=== PATIENT | female | born 1975 | race Caucasian/White ===

== ENCOUNTER 2021-12-26 14:04 | Outpatient (REF) | payer MEDICAID, SELFPAY ==
[2021-12-26 15:12] LABS: Rheumatoid Factor < 15.0 IU/mL (<15.0)
[2021-12-26 15:37] LABS: Erythrocyte Sedimentation Rate 7 MM/HR (0-20)
[2021-12-28 05:01] LABS: Lyme Abs Screen <0.90 index
[2021-12-28 13:47] LABS: Anti Nuclear Antibody Screen NEGATIVE (NEGATIVE)
== END 2021-12-26 14:05 | disposition home or self-care (01) ==
LOC: HO.LAB 14:04
PROVIDERS: Visit Provider Psychiatry & Neurology Neurology
DX: M79.604 Pain in right leg (principal)
CPT/HCPCS: 36415; 85652; 86038; 86039; 86431; 86617; 86618

== ENCOUNTER 2022-03-08 08:39 | Outpatient (REF) | payer MEDICAID, SELFPAY ==
--- NOTE | ~2022-03-08 | XR_ITS ---
EXAMINATION: XR CHEST CLINICAL INFORMATION: Shortness of breath. COMPARISON: None TECHNIQUE: 2 views of the chest were obtained. FINDINGS: No significant abnormality is noted involving the heart, lungs, mediastinum, bony thorax or soft tissues. XR/XR chest 2V IMPRESSION: Unremarkable chest exam.
== END 2022-03-08 08:40 | disposition home or self-care (01) ==
LOC: HO.XRAY 08:39
PROVIDERS: PCP Pediatrics; Visit Provider Emergency Medicine
DX: R06.02 Shortness of breath (principal)
CPT/HCPCS: 71046

== ENCOUNTER 2022-03-08 18:47 | Outpatient (REF) | payer MEDICAID, SELFPAY ==
--- NOTE | ~2022-03-08 | MR_ITS ---
EXAMINATION: MR LUMBAR SPINE WITHOUT CONTRAST CLINICAL INFORMATION: Low back pain radiating posteriorly on the left side. COMPARISON: MRI dated 01/29/2018. TECHNIQUE: MRI of the lumbar spine was obtained using routine sequences without contrast. FINDINGS: VERTEBRAL BODIES AND PARASPINAL STRUCTURES: The marrow signal is within normal limits. The L5 vertebra is transitional and partially sacralized. There are no compression fractures or subluxations. Mild disc space narrowing has slightly further developed at the L4-L5 level with mild right lateralized endplate edema. The paraspinal soft tissues appear normal. CONUS MEDULLARIS AND CAUDA EQUINA: Normal, terminating at the level of L1. No lower cord signal abnormality is seen. The cauda equina nerve roots are normal. SPINAL LEVELS: L1-L2: No disc pathology or central canal stenosis. Patent foramina. L2-L3: Mild disc bulge and shallow right subarticular zone disc protrusion with an underlying annular fissure. Mild facet arthropathy. No central canal stenosis or foraminal narrowing. L3-L4: Mild, broad-based posterior disc bulge and underlying annular fissure mildly impressing upon the ventral thecal sac with knwm-zb-[id number] facet arthropathy. Stable slight narrowing of the central canal. Patent foramina. L4-L5: Broad-based usjtxod-lp-vxlob subarticular zone disc protrusion mildly distorts the ventral thecal sac and slightly impresses upon the traversing right L5 nerve root. The disc protrusion is slightly increased in size. Hypertrophic facet arthropathy without central canal stenosis. Mild right foraminal narrowing. L5-S1: Efhe-nz-gkmvvblw facet arthropathy and mild disc bulge without central canal stenosis or foraminal encroachment. MR/MR lumbar spine wo con IMPRESSION: 1. Slight increase in size of a broad-based central to right subarticular zone disc protrusion at the L4-L5 level distorting the ventral thecal sac and impressing upon the right L5 nerve root. 2. Stable mild spondylitic changes elsewhere in the lumbar spine as compared to prior imaging. No central canal stenosis.
== END 2022-03-08 18:48 | disposition home or self-care (01) ==
LOC: HO.MRI 18:47
PROVIDERS: Visit Provider Physician Assistant
DX: M54.16 Radiculopathy, lumbar region (principal)
CPT/HCPCS: 72148

== ENCOUNTER 2022-03-09 10:23 | Outpatient (REF) | payer MEDICAID, SELFPAY ==
--- NOTE | ~2022-03-09 | US_ITS ---
EXAMINATION: US PELVIS CLINICAL INFORMATION: Abnormal uterine bleeding COMPARISON: 06/25/2014 TECHNIQUE: Ultrasound of the pelvis is performed using both transabdominal and transvaginal transducers along with Doppler. Transvaginal imaging is performed due to inadequate visualization transabdominally. FINDINGS: Uterus: The uterus is anteverted and measures 10.5 x 4.6 x 5.5 cm. The double wall endometrial thickness is 0.4 mm. The uterus is smooth in contour and has normal myometrial echogenicity. Posterior uterine body fibroid measures 2.3 x 2.4 x 2.7 cm. This is relatively isoechoic to the liver parenchyma. Adnexa: Both ovaries are visualized. There is normal color flow to the adnexa. There is no ovarian torsion. There is no pelvic ascites or fluid collection. Right ovary measures 2.4 x 0.9 x 2.2 cm. No adnexal mass. Left ovary measures 3.7 x 2.6 x 2.5 cm. Dominant follicles are present. The largest has internal echoes measuring up to 2 cm, possibly a hemorrhagic cyst. US/US pelvic and transvaginal IMPRESSION: Uterine fibroid measuring 2.7 cm noted. This shows increase in size from 2013. Probable small left ovarian hemorrhagic cyst.
== END 2022-03-09 10:24 | disposition home or self-care (01) ==
LOC: HO.HMGCX 10:23
PROVIDERS: PCP Pediatrics; Visit Provider Pediatrics
DX: N93.9 Abnormal uterine and vaginal bleeding, unspecified (principal); N93.8 Other specified abnormal uterine and vaginal bleeding
CPT/HCPCS: 76830; 76856

== ENCOUNTER → 2022-04-03 11:41 | Outpatient (BNVA) | payer MEDICAID, SELFPAY | PROVIDERS: PCP Pediatrics | DX: N39.41 Urge incontinence (principal) | CPT/HCPCS: 99202 ==

== ENCOUNTER 2022-05-18 12:05 | Outpatient (REF) | payer MEDICAID, SELFPAY ==
[2022-05-18 13:20] LABS: Hematocrit 36.5 % (37.0-47.0); Hemoglobin 12.2 g/dl (12.0-16.0); Mean Corpuscular HGB Conc 33.4 g/dl (31.0-35.0); Mean Corpuscular Hemoglobin 29.7 pg (27.0-33.0); Mean Corpuscular Volume 88.8 fL (80.0-98.0); Mean Platelet Volume 9.8 fL (9.4-12.3); Platelet Count 263 X10*3/uL (160-400); Red Blood Count 4.11 X10*6/uL (4.20-5.50); Red Cell Distribution Width 14.3 % (11.0-16.0); White Blood Count 5.4 X10*3/uL (4.8-10.8)
[2022-05-18 14:47] LABS: HCG Quantitative < 2 mIU/mL; TSH reflex Free T4 0.51 uIU/mL (0.32-4.0)
[2022-05-19 04:32] LABS: CT PCR NOT DETECTED (Not Detect.); NG PCR NOT DETECTED (Not Detect.)
[2022-05-20 03:47] LABS: Follicle Stimulating Hormone 23.4 mIU/mL; Lutenizing Hormone 10.5 mIU/mL
[2022-05-24 18:21] LABS: HPV mRNA E6/E7 rflx Not Detected (Not Detected)
== END 2022-05-18 12:06 | disposition home or self-care (01) ==
LOC: HO.LAB 12:05
PROVIDERS: PCP Pediatrics; Visit Provider Obstetrics & Gynecology
DX: N93.9 Abnormal uterine and vaginal bleeding, unspecified (principal); D21.9 Benign neoplasm of connective and other soft tissue, unspecified; N83.209 Unspecified ovarian cyst, unspecified side
CPT/HCPCS: 36415; 83001; 83002; 84443; 84702; 85027; 87491; 87591; 87624; 88142; 99202

== ENCOUNTER 2022-06-11 14:58 | Outpatient (REF) | payer MEDICAID, SELFPAY | END 2022-06-11 14:59 | disposition home or self-care (01) | LOC: HO.LAB 14:58 | PROVIDERS: PCP Pediatrics; Visit Provider Obstetrics & Gynecology | DX: Z32.02 Encounter for pregnancy test, result negative (principal); N93.9 Abnormal uterine and vaginal bleeding, unspecified | CPT/HCPCS: 58100; 81025; 88305 ==

== ENCOUNTER 2022-07-04 10:19 | Outpatient (REF) | payer MEDICAID, SELFPAY ==
--- NOTE | ~2022-07-04 | US_ITS ---
EXAMINATION: US PELVIS CLINICAL INFORMATION: Abnormal uterine and vaginal bleeding. COMPARISON: None TECHNIQUE: Ultrasound of the pelvis is performed using both transabdominal and transvaginal transducers along with Doppler. Transvaginal imaging is performed due to inadequate visualization transabdominally. FINDINGS: UTERUS: The uterus is anteverted and anteflexed and measures 10.0 x 5.04 x 5.90 cm. The double wall endometrial thickness is 0.41 cm. The uterus is smooth in contour with very heterogeneous echotexture. There is a hypoechoic lesion in the anterior body of the uterus measuring 3.91 x 3.48 x 3.64 cm. Previously measured 2.3 x 2.4 x 2.7 cm. ADNEXA: Both ovaries are visualized. There is normal color flow to the adnexa. There is no ovarian torsion. There is no pelvic ascites or fluid collection. Right ovary measures 2.60 x 0.97 x 1.71 cm and volume 2.26 mL. Previously right ovary measured 2.4 x 0.90 x 2.2 cm. Left ovary measures 5.78 x 3.82 x 4.47 cm and volume 51.68 mL. There is a complex cyst measuring 4.3 x 3.7 x 4.7 cm. Previously it measured 2.0 x 2.0 x 1.8 cm. Previously the left ovary measured 3.7 x 2.6 x 2.5 cm. There is no free fluid in cul-de-sac. US/US pelvic and transvaginal IMPRESSION: Complex cyst left ovary. The right ovary is unremarkable. Very heterogeneous uterus with solitary fibroid.
== END 2022-07-04 10:20 | disposition home or self-care (01) ==
LOC: HO.MAMMO 10:19
PROVIDERS: Visit Provider Obstetrics & Gynecology
DX: N93.9 Abnormal uterine and vaginal bleeding, unspecified (principal)
CPT/HCPCS: 76830; 76856

== ENCOUNTER 2022-07-21 12:25 | Emergency (ER) | payer MEDICAID, SELFPAY ==
[2022-07-21 12:46] VITALS: BP 128/85; PULSE 88; RESP 15; TEMP 37.1; O2SAT 98; BMI 29.5
[2022-07-21 13:10] LABS: IDNOW Serial# 9DB6401D; Influenza A Negative (Negative)
[2022-07-21 13:11] LABS: Influenza B2 Negative (Negative)
[2022-07-21 13:12] LABS: COVID-19 Test Negative (Negative)
--- NOTE | 2022-07-21 15:45 | ED_ITS ---
HPI - URI/Sore Throat General Chief Complaint: Upper Respiratory Symptoms Stated Complaint: flu like symptoms Time Seen by Provider: 07/21/22 15:45 Source: patient Mode of arrival: ambulatory Limitations: no limitations History of Present Illness HPI Narrative: 46-year-old female who is healthy presents with 2 days of nasal congestion, sneezing, sore throat, body aches. Daughter is sick at home with similar symp toms. No difficulty breathing, chest pain, vomiting, diarrhea, abdominal pain. Related Data Home Medications Medication Instructions Recorded Confirmed cholecalciferol (vitamin D3) 50 50 mcg PO DAILY 05/18/22 mcg (2,000 unit) capsule (Vitamin D3) dextroamphetamine-amphetamine 10 10 mg PO DAILY 05/18/22 mg tablet (Adderall) loratadine 10 mg tablet 10 mg PO DAILY 05/18/22 meloxicam 7.5 mg tablet 7.5 mg PO BID PRN 05/18/22 prenat.vits,florencia,bme-sitt-hvohj 1 tab PO DAILY 05/18/22 dextroamphetamine-amphetamine ER 1 cap PO QAM 06/04/22 10 mg 24hr capsule,extend release (Adderall XR) vits no.130-ferrous fum 1 tab PO DAILY 06/04/22 27 mg iron-folic acid 800 mcg tablet ( Vitamin) Allergies Allergy/AdvReac Type Severity Reaction Status Date / Time No Known Allergies Allergy Verified 06/04/22 15:09 mold, pollen Allergy Unknown Unknown Uncoded 06/04/22 15:09 Review of Systems Review of Systems: Yes all other systems are reviewed and are negative Constitutional: Constitutional: Reports no additional constitutional complaints, Reports body ache(s), Denies chills, Denies fever(s), Denies headache(s) and Denies weakness Eyes: Eyes: Reports no additional eye complaints and Denies change in vision ENT: Reports system reviewed and no additional complaints, except as documented, Denies dizziness, Denies headache(s), Reports nasal congestion, Denies nasal discharge, Denies neck pain and Reports sore throat Cardiovascular: Cardiovascular: Reports no additional cardiovascular complaints, Denies chest pain, Denies leg edema and Denies dyspnea Respiratory: Respiratory: Reports no additional respiratory complaints, Denies cough and Denies dyspnea Gastrointestinal: Gastrointestinal: Reports no additional gastrointestinal complaints, Denies abdominal pain, Denies diarrhea, Denies nausea and Denies vomiting Genitourinary: Genitourinary: Reports no additional female genitourinary complaints and Denies urinary incontinence Musculoskeletal: Musculoskeletal: Reports no additional musculoskeletal complaints, Denies back pain, Denies arthralgias, Denies joint swelling, Denies neck pain, Denies numbness and Denies tingling Integumentary/Breasts: Skin/Breast: Reports system reviewed and no additional complaints, except as docu and Denies rash Neurologic: Reports system reviewed and no additional complaints, except as documented, Denies Abnormal speech present, Denies dizziness, Denies headache(s), Denies numbness, Denies tingling and Denies weakness PMFSH Past Medical History Attestation statement: The following information was validated with the patient. Source: old records reviewed and nursing notes reviewed Medical History Arthritis of left knee Degenerative tear of meniscus of left knee Osteoarthritis of patellofemoral joints, bilateral Other chronic pain Urge incontinence Surgical History History of surgery Social History Social History Advance Directives: No Advance Directives Information Provided: No Physical Exam Vital Signs: Vital Signs: Last Vital Signs Temp 98.8 F 07/21/22 12:46 Pulse 88 07/21/22 12:46 Resp 15 07/21/22 12:46 BP 128/85 07/21/22 12:46 Pulse Ox 98 07/21/22 12:46 O2 Del Method 07/21/22 12:46 BMI result Body Mass Index 29.5 Const: General: cooperative, healthy appearing, comfortable and no acute distress Orientation/consciousness: patient oriented x3 Limitations: no limitations HEENT: Head: Yes normal to inspection Ears: hearing grossly normal bilaterally and TM's normal bilaterally General nose exam: Normal external nose present Face and sinus: Yes normal facial exam Mouth: Normal oral and palatal mucosa present Throat: Yes posterior oropharynx normal, Yes tonsils normal and Yes uvula midline Eyes: General: appearance normal, both eyes and all related structures Pupils: Equal, round and reactive pupils present Neck: Neck: Yes normal visual inspection, Yes full ROM and Yes no lymphadenopathy Chest: Chest palpation & inspection: normal inspection of the chest Resp: Effort & Inspection: normal respiratory effort Auscultation: clear to auscultation bilaterally Cardio: Rate: regular rate Rhythm: regular rhythm Peripheral pulses: Peripheral pulses 2+ throughout GI: Inspection: Yes normal to inspection Palpation (GI): Soft to palpation and nontender Auscultation: normal bowel sounds Back/Spine/Pelvis: Thoracic/Lumbar Spine: thoracic and lumbar spine normal to inspection Skin: General skin exam: no rashes or lesions noted Neuro: General: patient oriented x3, no focal motor deficits and normal sensation to monofilament Cranial nerves: Yes Equal, round and reactive pupils present Cognition (Neuro): normal cognition Speech: No Abnormal speech present Gait exam (Neuro): Normal gait present Motor exam (neuro): 5/5 motor strength present throughout Extrem: General: Yes normal to inspection Course Course Course Narrative: Testing for flu, COVID and RSV are negative. Likely viral syndrome. Will discharge home with supportive care. Reviewed worrisome signs and symptoms of when to return to the emergency room. Comfortable discharge home. MDM - URI/Sore Throat MDM Narrative Medical decision making narrative: 46-year-old female here with several days of URI symptoms. Patient has had sick contact. Will send testing for flu, COVID and RSV Vitals are stable Exam is benign Medical Records Attestation: I reviewed the patient's medical records. Lab Data Attestation: I reviewed the patient's lab results. Labs: Lab Results 07/21/22 07/21/22 Range/Units 12:50 12:50 COVID-19 (LIZZETTE) Negative (Negative) COVID-19 Clin Com See Note Influenza Type A (LIEN) Negative (Negative) Influenza Type B (LIEN) Negative (Negative) Influenza A & B Note See Note Discharge Plan Discharge Clinical Impression: Viral infection Patient Disposition: Home, Self-Care Instructions: Viral Syndrome (ED) Additional Instructions: Testing for flu, COVID, RSV were all negative Alternate Motrin and Tylenol for pain or fever Increase fluids, rest Prescriptions: No Action dextroamphetamine-amphetamine [Adderall XR] 10 mg capsule,extended release 24hr 1 cap PO QAM Vitamin 27 mg iron- 800 mcg tablet 1 tab PO DAILY dextroamphetamine-amphetamine [Adderall] 10 mg tablet 10 mg PO DAILY prenat.vits,florencia,ngh-rndd-qlssu Tablet 1 tab PO DAILY cholecalciferol (vitamin D3) [Vitamin D3] 50 mcg (2,000 unit) capsule 50 mcg PO DAILY meloxicam 7.5 mg tablet 7.5 mg PO BID PRN loratadine 10 mg tablet 10 mg PO DAILY Referrals: Kiarra Kate MD [Primary Care Provider] - Stand Alone Forms: Work/School Release Interventions: ED Discharge Assessment Last Done: 07/21/22 15:54 Discharge Date/Time: 07/21/22 15:55
== END 2022-07-21 15:55 | disposition home or self-care (01) ==
PROVIDERS: Emergency Provider Emergency Medicine; PCP Pediatrics
DX: B34.9 Viral infection, unspecified (principal); Z20.822 Contact with and (suspected) exposure to COVID-19; J02.9 Acute pharyngitis, unspecified
CPT/HCPCS: 87502; 87635; 99283

== ENCOUNTER → 2022-08-15 13:02 | Outpatient (BNVA) | payer MEDICAID, SELFPAY | PROVIDERS: PCP Pediatrics; Visit Provider Urology | DX: N39.3 Stress incontinence (female) (male) (principal); N81.89 Other female genital prolapse; N32.81 Overactive bladder; N81.10 Cystocele, unspecified; K59.00 Constipation, unspecified | CPT/HCPCS: 51798; 99212 ==

== ENCOUNTER 2022-09-18 15:00 | Outpatient (RCR) | payer MEDICAID, SELFPAY ==
--- NOTE | 2022-05-21 12:00 | MHC.PT.EP ---
[facility] [place] Office [place] Office [place] Office [address] Roberto Weber [address] [phone] F: [phone] F: [phone] F: [phone] F: [phone] Physical Therapy Plan of Care Date of Evaluation: Date of Surgery: N/A Diagnosis: urge incontinence (RC) Assessment: pt is a 46 yo female presenting to physical therapy w/ urge incontinence. pt presents to physical therapy with pain, decreased range of motion, decreased strength, impaired functional mobility, impaired postural awareness, and gait deviations. pt is a good candidate for skilled PT due to age, potential remediation of impairments, typical disease/condition progression and prognosis, comorbidities, and motivation. pt would benefit from tailored strengthening and stretching exercise program, functional training, gait training, postural re-training, neuromuscular re-education, modalities as needed for pain, equipment safety demonstration. Frequency and Duration: The patient will be seen 1x/wk for 8 wks Short Term Goals: pt will be I w/ HEP to promote self-management of condition. pt will improve B hip abduction strength to improve gait pattern on even ground. Chcf Goals: pt will report a reduction of incontinence episodes to 0x/per month to promote continence w/ IAP. pt will demo proper lifting mechanics x5 reps w/ no verbal cueing of 15# from floor to waist height to promote neutral spine w/ carrying groceries. Treatment Plan: Modalities to reduce pain, spasms and effusion. Manual therapy to restore motion and function. Therapeutic exercise to improve strength and flexibility. Neuromuscular re-education for posture and balance. Therapeutic activities to return to functional activities of daily living. Electronically signed by: Please sign and return to therapist. Thank you for your referral.
== END 2022-10-23 10:29 | disposition home or self-care (01) ==
LOC: HO.PT 15:00
PROVIDERS: PCP Pediatrics
DX: N39.41 Urge incontinence (principal)
CPT/HCPCS: 97110; 97112; 97140; 97162

== ENCOUNTER → 2022-12-17 10:21 | Outpatient (BNVA) | payer MEDICAID, SELFPAY | PROVIDERS: PCP Pediatrics; Visit Provider Nurse Practitioner Family | DX: Z13.89 Encounter for screening for other disorder (principal) ==

== ENCOUNTER 2023-06-04 11:06 | Outpatient (REF) | payer MEDICAID, SELFPAY ==
[2023-06-05 14:53] LABS: BV Int Neg Control Negative (Negative); BV Int Pos Control Positive (Positive)
== END 2023-06-04 11:07 | disposition home or self-care (01) ==
LOC: HO.CHCLDS 11:06
PROVIDERS: Visit Provider Pediatrics
DX: N76.0 Acute vaginitis (principal)
CPT/HCPCS: 87480; 87510; 87660

== ENCOUNTER 2023-12-03 11:36 | Outpatient (REF) | payer MEDICAID, SELFPAY ==
[2023-12-03 15:45] LABS: TSH reflex Free T4 0.42 uIU/mL (0.32-4.0)
== END 2023-12-03 11:37 | disposition home or self-care (01) ==
LOC: HO.CHCLDS 11:36
PROVIDERS: Visit Provider Advanced Practice Midwife
DX: N95.9 Unspecified menopausal and perimenopausal disorder (principal)
CPT/HCPCS: 36415; 84443

== ENCOUNTER 2024-01-03 11:10 | Outpatient (REF) | payer MEDICAID, SELFPAY ==
[2024-01-03 14:30] LABS: MANUAL DIFF FLAG NO
[2024-01-03 14:35] LABS: Basophils Percent Auto 0.4 % (0-2); Eosinophils Absolute Auto 0.2 X10*3/uL (0.0-0.4); Eosinophils Percent Auto 3.1 % (0-4); Hematocrit 37.5 % (37.0-47.0); Hemoglobin 12.6 g/dl (12.0-16.0); Imm Gran Abs Auto 0.02 X10*3/uL (0.00-0.03); Imm Gran Pct Auto 0.4 % (0.0-0.4); Lymphocytes Absolute Auto 2.4 X10*3/uL (1.2-4.9); Lymphocytes Percent Auto 42.9 % (20-40); Mean Corpuscular HGB Conc 33.6 g/dl (31.0-35.0); Mean Corpuscular Hemoglobin 28.8 pg (27.0-33.0); Mean Corpuscular Volume 85.8 fL (80.0-98.0); Mean Platelet Volume 9.7 fL (9.4-12.3); Monocytes Absolute Auto 0.3 X10*3/uL (0.1-1.2); Monocytes Percent Auto 6.2 % (2-11); Neutrophils Absolute Auto 2.6 x10*3/uL (2.0-8.3); Platelet Count 267 X10*3/uL (160-400); Red Blood Count 4.37 X10*6/uL (4.20-5.50); Red Cell Distribution Width 13.5 % (11.0-16.0); White Blood Count 5.5 X10*3/uL (4.8-10.8)
[2024-01-03 14:48] LABS: Alanine Aminotransferase 44 U/L (0-31); Albumin Level 4.2 g/dL (3.5-5.0); Alkaline Phosphatase 76 U/L (39-117); Aspartate Amino Transferase 28 U/L (5-31); Bilirubin Direct 0.2 mg/dL (0.0-0.5); Bilirubin Total 0.8 mg/dL (0.0-1.0); Rheumatoid Factor < 13.0 IU/mL (<15.0); Total Protein 7.1 g/dL (6.5-8.0)
[2024-01-03 15:29] LABS: Erythrocyte Sedimentation Rate 14 MM/HR (0-20)
== END 2024-01-03 11:11 | disposition home or self-care (01) ==
LOC: HO.CHCLDS 11:10
PROVIDERS: Visit Provider Pediatrics
DX: M17.0 Bilateral primary osteoarthritis of knee (principal); N95.9 Unspecified menopausal and perimenopausal disorder; D64.9 Anemia, unspecified
CPT/HCPCS: 36415; 80076; 85025; 85652; 86431

== ENCOUNTER 2024-04-09 14:04 | Outpatient (REF) | payer MEDICAID, SELFPAY ==
--- NOTE | ~2024-04-09 | XR_ITS ---
EXAMINATION: XR LUMBOSACRAL SPINE CLINICAL INFORMATION: Chronic bilateral thoracic back pain COMPARISON: Lumbar spine 08/10/2011 TECHNIQUE: Three views of the lumbosacral spine. FINDINGS: There 5 nonrib-bearing lumbar-type vertebral bodies. The height of vertebral bodies is well-maintained. There is moderate disc space narrowing with marginal ossified formation at L4-L5. The L5-S1 disc space is narrow. There is multilevel degenerative facet joint disease, most noted at L4-L5 and L5-S1. There is spondylolisthesis. The sacroiliac joints are symmetric. XR/XR lumbar spine 2-3V IMPRESSION: 1. Degenerative disc disease at L4-L5 and L5-S1. 2. Multilevel degenerative facet joint disease.
--- NOTE | ~2024-04-09 | XR_ITS ---
EXAMINATION: XR THORACOLUMBAR SPINE CLINICAL INFORMATION: Chronic bilateral thoracic back pain COMPARISON: Thoracic spine 01/04/2014 TECHNIQUE: 3 views of the thoracic spine FINDINGS: The vertebral alignment is normal. No intrinsic bony abnormality. No fracture or subluxation. There is multilevel disc space narrowing with marginal osteophyte formation. Incidental note is made of degenerative disc disease in the mid and lower cervical spine. The surrounding prevertebral soft tissues are unremarkable. XR/XR thoracic spine 2V IMPRESSION: Multilevel degenerative disc disease in the thoracic spine. Multilevel degenerative disc disease in the mid and lower cervical spine.
== END 2024-04-09 14:05 | disposition home or self-care (01) ==
LOC: HO.XRAY 14:04
PROVIDERS: PCP Pediatrics; Visit Provider Pediatrics
DX: M54.6 Pain in thoracic spine (principal); G89.29 Other chronic pain
CPT/HCPCS: 72070; 72100

== ENCOUNTER 2024-05-21 16:03 | Outpatient (REF) | payer MEDICAID, SELFPAY ==
[2024-05-21 18:35] LABS: Alanine Aminotransferase 26 U/L (0-31); Albumin Level 4.5 g/dL (3.5-5.0); Alkaline Phosphatase 79 U/L (39-117); Aspartate Amino Transferase 18 U/L (5-31); Bilirubin Direct 0.2 mg/dL (0.0-0.5); Total Protein 7.6 g/dL (6.5-8.0)
[2024-05-22 08:11] LABS: HBc Num1 0.07 S/CO (0.00-0.79); HBsAGNum1 0.28 S/CO (0.00-0.99); Hepatitis A Antibody IgM 0.11 Index (0-0.79); Hepatitis B Core Antibody Nonreactive (Nonreactive); ~HepC Num1 0.08 S/CO (0.00-0.79); ~Hepatitis A Antibody IgM Nonreactive (Nonreactive); ~Hepatitis B Surface Antibody NONREACTIVE (Nonreactive); ~Hepatitis C Antibody Nonreactive (Nonreactive)
[2024-05-22 08:12] LABS: Hepatitis B Surface Antigen Negative (Negative)
== END 2024-05-21 16:04 | disposition home or self-care (01) ==
LOC: HO.CHCLDS 16:03
PROVIDERS: Visit Provider Pediatrics
DX: R74.01 Elevation of levels of liver transaminase levels (principal)
CPT/HCPCS: 36415; 80076; 86704; 86706; 86709; 86803; 87340

== ENCOUNTER 2025-07-06 12:01 | Outpatient (REF) | payer MEDICAID, SELFPAY ==
--- OUTSIDE RECORDS SUMMARY | 2025-07-06 11:15 | XMS_ITS | Encounter Summary ---
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 Role Phone Kiarra Kate MD Primary Care Provider [phone] Encounter Details Date Type Department Care Team ([facility] st Contact Info) Description 07/06/2025 11:15 AM EDT Office Visit [facility]EDS [address], [place] [phone] Kiarra Kate MD [address] [place] [address] Menopausal syndrome (hot flashes) (Primary Dx); Dietary counseling; Exercise counseling; Bladder prolapse, female, acquired Social History Tobacco Use Types Packs/Day Years Used Date Smoking Tobacco: Never Passive Smoke Exposure: Never Smokeless Tobacco: Never Tobacco Cessation:Counseling Given: Not Answered Alcohol Use Standard Drinks/Week Comments Not Currently 0 (1 standard drink = 0.6 oz pur e alcohol) Housing Stability Answer Date Recorded What is your housing situation today? I have junaid hein 08/04/[address] you li ve. Do you have problems with any of the following? None of the above 08/04/2024 Food Insecurity Answer Date Recorded Within the past 12 months, y ou worried that your food would run out before you got money to buy more: Never True 08/04/2024 Within the past 12 months,th e food you bought just didn't last and you didn't have enough money to get more: Never True Transportation Answer Date Recorded In the past 12 months, has l ack of transportation kept you from medical appts, meetings, work or from getting things needed for daily living? No 08/04/2024 Utilities Answer Date Recorded In the past 12 months, has t he electric, gas, oil or water company threatened to shut off services in your home? No 08/04/2024 Internet Access Answer Date Recorded Internet Access Q1 Yes 08/04/2024 Internet Access Q2 Not on file 08/04/2024 Comments No Sex and Gender Information Value Date Recorded Sex Assigned at Female 09/10/2022 10:20 AM EDT Legal Sex Female 10:20 AM EDT Gender Identity Female 09/10/2022 10:20 AM EDT Sexual Orientation Straight 09/10/2022 10 :20 AM EDT documented as of this encounter Last Filed Vital Signs Vital Sign Reading Time Taken Comments Blood Pressure 128/80 07/06/2025 11:29 AM EDT Pulse 72 07/06/2025 11:29 AM EDT Temperature 36.6 C (97.8 F) 07/06/2025 11:29 AM EDT Respiratory Rate 20 07/06/2025 11:29 AM EDT Oxygen Saturation - - Inhaled Oxygen Concentration - - Weight 88 kg (194 lb) 07/06/2025 11:29 AM EDT Height 162.6 cm (5' 4 ) 07/06/2025 11:29 AM EDT Body Mass Index 33.3 07/06/2025 11:29 AM EDT documented in this encounter Progress Notes * Kiarra Kate MD - 07/06/2025 11:15 AM EDT Subjective Patient ID: Estela Zapata is a 49 y.o. female who presents for multiple complaints. Estela is a 49 y/o female patient of mine with history of anxiety, environmental allergies, overweight, bladder prolapse with bladder lift surgery in February 2025, perimenopausal state with perimenopausal syndrome symptoms. Patient is here for complaints of having more hot flashes and decrease in sexual desire and appetite. States she is scheduled to see pelvic PT at [facility] in to not having good results with her bladder surgery. Patient still feels her bladder and mesh are very low and interfering with sexual activity. Last period was in February of this year. Review of Systems Constitutional: Negative for activity change, chills, fever and unexpected weight change. Respiratory: Negative for cough, shortness of breath and wheezing. Cardiovascular: Negative for chest pain, palpitations and leg swelling. Gastrointestinal: Negative for abdominal pain and blood in stool. Endocrine: Negative for polydipsia and polyuria. Genitourinary: Negative for decreased urine volume, difficulty urinating, dysuria, genital sores, hematuria, pelvic pain, vaginal bleeding and vaginal discharge. Musculoskeletal: Negative for arthralgias and gait problem. Skin: Negative for color change and rash. Neurological: Negative for dizziness and headaches. Hematological: Negative for adenopathy. Psychiatric/Behavioral: Negative for dysphoric mood, hallucinations, sleep disturbance and suicidalideas. The patient is not nervous/anxious. Objective BP 128/80 (BP Location: Left arm, Patient Position: Sitting, BP Cuff Size: Adult) Pulse72 Temp 97.8 ??F (36.6 ??C) (Oral) Resp 20 Ht 5' 4 (1.626 m) Wt 194 lb (88 kg) BMI 33.30kg/m?? Physical Exam Vitals reviewed. Constitutional: General: She is not in acute distress. Appearance: Normal appearance. She is not ill-appearing. HENT: Head: Normocephalic. Right Ear: Tympanic membrane and ear canal normal. Left Ear: Tympanic membrane and ear canal normal. Nose: Nose normal. Mouth/Throat: Mouth: Mucous membranes are moist. Pharynx: No oropharyngeal exudate or posterior oropharyngeal erythema. Eyes: Extraocular Movements: Extraocular movements intact. Conjunctiva/sclera: Conjunctivae normal. Pupils: Pupils are equal, round, and reactive to light. Cardiovascular: Rate and Rhythm: Normal rate and regular rhythm. Pulses: Normal pulses. Heart sounds: Normal heart sounds. Pulmonary: Effort: Pulmonary effort is normal. No respiratory distress. Breath sounds: Normal breath sounds. Abdominal: Palpations: Abdomen is soft. Genitourinary: Pubic Area: No rash. Comments: Enlarged introitus and mesh visible immediately Musculoskeletal: General: Normal range of motion. Cervical back: Normal range of motion. Skin: General: Skin is warm. Capillary Refill: Capillary refill takes less than 2 seconds. Neurological: General: No focal deficit present. Mental Status: She is alert and oriented to person, place, and time. Psychiatric: Mood and Affect: Mood normal. Behavior: Behavior normal. Thought Content: Thought content normal. Judgment: Judgment normal. Assessment/Plan Diagnoses and all orders for this visit: Menopausal syndrome (hot flashes) Comments: Check labs and hormone levels today. Last menses was in February. Has lots of hot flashes, decreased sexual desire, etc. Orders: - CBC auto differential; Future - Estradiol; Future - Vitamin D, 25-Hydroxy, Total, Immunoassay; Future - TSH W/Reflex to FT4; Future - Testosterone, Free (Dialysis) And Total, MS; Future - Estradiol; Future Dietary counseling Exercise counseling Bladder prolapse, female, acquired Comments: Patient had bladder lift done in February of this year. Had some complications from surgery. Seeing pelvic PT next month. Continue Kegel and estrogen cream. documented in this encounter Plan of Treatment Upcoming Encounters Date Type Department Care Team (Late st Contact Info) Description 08/17/2025 10:30 AM EDT Office Visit [facility] MED & PEDS [address] [place] [address] Irving Garcia MD [address] [place] [address] 09/10/2025 10:00 AM EDT Office Visit [facility] MED & PEDS [address] [place] [address] Kiarra Kate MD [address] [place] [address] Scheduled Orders Name Type Priority Associated Diagnoses Orde r Schedule CBC auto differential Lab Routine Menopausal syndrome (hot flashes) Expected: 07/06/2025 (Approximate), Expires: 07/06/2026 Estradiol Lab Routine Menopausal syndrome (hot flashes) Expected: 07/06/2025, Expires: 07/06/2026 Vitamin D, 25-Hydroxy, Total, Immunoassay Lab Routine Menopausal syndrome (hot flashes) Expected: 07/06/2025 (Approximate), Expires: 07/06/2026 TSH W/Reflex to FT4 Lab Routine Menopausal syndrome (hot flashes) Expected: 07/06/2025 (Approximate), Expires: 07/06/2026 Testosterone, Free (Dialysis) And Total, MS Lab Routine Menopausal syndrome (hot flashes) Expected: 07/06/2025 (Approximate), Expires: 07/06/2026 Estradiol Lab Routine Menopausal syndrome (hot flashes) Expected: 07/06/2025 (Approximate), Expires: 07/06/2026 documented as of this encounter Visit Diagnoses Diagnosis Menopausal syndrome (hot flashes)- Primary Symptomatic menopausal or female climacteric states Dietary counseling Dietary surveillance and counseling Exercise counseling Bladder prolapse, female, acquired documented in this encounter Care Teams 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
--- OUTSIDE RECORDS SUMMARY | 2025-07-06 12:53 | XMS_ITS | Clinical Summary ---
Author Organization [employer] Address [address] [place] [address] 7[address] [place] [address] Care Team Providers Care Adult Caregiver Name Role Phone Kiarra Kate MD Primary Care Provider [phone] Allergies Active Allergy Reactions Criticality Noted Date Comments Pollen Extract 06/04/2023 Other Reaction(s): trees, grass, pollen, dust mites, animal dander Medications acetaminophen (Tylenol 8 Hour) 650 MG ER tablet Take 650 mg by mouth every 8 (eight) hours if needed. 2 Active sennosides (Senokot) 8.6 MG tablet Take 8.6 mg by mouth. 3 Active clobetasol (Temovate) 0.05 % ointment Apply topically 2 times daily. 45 g 3 3 Active docusate sodium (Colace) 100 MG capsule TAKE 1 CAPSULE BY MOUTH TWICE A DAY MEDICATION TO BE STARTED AFTER SURGERY 180 capsule 1 4 Active loratadine (Claritin) 10 MG tablet Take 1 tablet (10 mg) by mouth Once per day. 90 tablet 2 4 Active fluticasone (Flonase) 50 MCG/ACT nasal spray Administer 1 spray into each nostril Once per day. Shake gently. Before first use, prime pump. After use, clean tip and replace cap. 16 g 12 4 08/11/20 25 Active betamethasone valerate (Valisone) 0.1 % ointmentIndicat ions:Dyshydrosi s Apply topically if needed in the morning and at bedtime (dryness). 45 g 2 4 Active tretinoin (Retin-A) 0.025 % creamIndication s:Acne vulgaris Apply topically at bedtime. 45 g 1 4 10/27/20 25 Active amphetamine-dex troamphetamine XR (Adderall XR) 10 MG 24 hr capsule TAKE 1 CAPSULE BY MOUTH AT BEDTIME 30 capsule 5 Active cholecalciferol (Vitamin D-3) 125 MCG (5000 UT) capsule TAKE 1 CAPSULE BY MOUTH EVERY DAY 90 capsule 1 5 Active Active Problems Problem Noted Date Diagnosed Date Bladder prolapse, female, acquired 07/06/2025 Arthritis 05/21/2024 Class 1 obesity 05/21/2024 COVID-19 05/21/2024 Cystocele with rectocele 05/21/2024 Herniated lumbar intervertebral disc 05/21/2024 Neuropathy of lower extremity 05/21/2024 Primary osteoarthritis of right knee 05/21/2024 Stress incontinence 05/21/2024 Symptomatic varicose veins 05/21/2024 Venous hypertension of lower extremity History of bilateral knee replacement 02/15/2023 Axonal neuropathy 09/16/2019 Osteoarthritis of patellofemoral joints of both knees 07/08/2019 Disorder of intervertebral disc of lumbar spine 01/23/2018 Obesity with body mass index 30 or greater 10/14 Neck pain 07/14/2013 Anxiety state 12/28/2011 Backache 12/28/2011 Obesity 12/28/2011 Arthropathy 08/22/2011 Depressive disorder 02/02/2011 Allergic rhinitis 08/04/2010 Acne 08/04/2010 Encounters Date Type Department Care Team Description 07/06/2025 11:15 AM EDT Office Visit [facility] [address] [place] [address] Kiarra Kate MD Menopausal syndrome (hot flashes) (Primary Dx); Dietary counseling; Exercise counseling; Bladder prolapse, female, acquired 07/06/2025 Travel 07/05/2025 Telephone [facility] [address] [place] [address] Kiarra Kate MD chart prep 06/25/[address] [facility] [address] [place] [phone] Pruitt, Jaysha Pre-visit Planning (SDOH screening negative and Tobacco screening negative) 06/21/[address] [facility] [address] [place], [place] [phone] Kiarra Kate MD Nurse Triage 04/30/[address] [facility] [address] [place] [address] Kiarra Kate MD from Last 3 Months Immunizations Immunization Administration Dates Next Due DTaP 09/23/2017 Hep B, Adolescent or Pediatric 05/04/2011,2010 Hep B, adult 09/25/2013 Influenza injectable quadriv alent IIV4 with preservative 09/29/2019,10/30/2018,09/14/2016,2014 Influenza injectable quadriv alent preservative free 09/11/2022,09/13/2021,09/23/2017 Influenza, IIV3, injectable 08/18/2014 Influenza, Split (incl. jose david fied surface antigen) 09/25/2013 MMR 05/03/2016,04/02/2016 Pfizer Covid-19 Vaccine 12+ 06/30/2021, Tdap 10/14/2015 Social History Tobacco Use Types Packs/Day Years [...] Orientation Straight 09/10/2022 10 :20 AM EDT Last Filed Vital Signs Vital Sign Reading Time Taken Comments Blood Pressure 128/80 07/06/2025 11:29 AM EDT Pulse 72 07/06/2025 11:29 AM EDT Temperature 36.6 C (97.8 F) 07/06/2025 11:29 AM EDT Respiratory Rate 20 07/06/2025 11:29 AM EDT Oxygen Saturation 98% 10/27/2024 9:42 AM EST Inhaled Oxygen Concentration - - Weight 88 kg (194 lb) 07/06/2025 11:29 AM EDT Height 162.6 cm (5' 4 ) 07/06/2025 11:29 AM EDT Body Mass Index 33.3 07/06/2025 11:29 AM EDT Plan of Treatment Upcoming Encounters Date Type Department Care Team (Late st Contact Info) Description 08/17/2025 10:30 AM EDT Office Visit [facility] [address] [place] [address] Irving Garcia MD [address] [place] [address] 09/10/2025 10:00 AM EDT Office Visit [facility] [address] [place] [address] Kiarra Kate MD [address] [place] [address] Health Maintenance Due Date Last Done Comments CT Colonography 1977 Colonoscopy 1977 Depression Screening 1977 FIT 1977 FOBT 1977 HIV Screening 1977 Sigmoidoscopy 1977 Disability Screening 1977 Alcohol/Substance Use Screening 1989 Family Planning (PISQ) 1992 Hepatitis B Vaccines (2 of 3 - 19+ 3-dose series) 10/23/2013 09/25/2013, 05/04/2011, 04/04/2011 COVID-19 Vaccine ( season) 2024 06/30/2021, 06/09/2021 Influenza Vaccine (#1) 2025 , 09/13/2021, 09/29/2019, Additional history exists SDOH Screening 06/25/2026 06/25/2025 Tobacco Screening 07/06/2026 07/06/2025 Lipid Panel 07/31/2026 07/31/2021, 01/24/2021 Mammogram 10/12/2026 10/12/2024 Cervical Cancer Screening 05/18/2027 HPV/Cotest 05/18/2027 05/18/2022, 07/0 06/2022, 05/18/2022, Additional history exists Pap Smear 05/18/2027 05/18/2022, 07/28/2021 Colorectal Cancer Screening 08/19/2027 FIT DNA/Cologuard 08/19/2027 08/19/2024 DTaP/Tdap/Td Vaccines (3 - Td or Tdap) 09/23/2027 09/23/2017, 10/14/2015 Zoster Vaccines (1 of 2) 2027 RSV Patients and Patients Aged 60 years or older (1 - 1-dose 75+ series) 2052 Hepatitis C Screening Completed 05/21/2024 HIB Vaccines Aged Out No longer eligi ble based on patient's age to complete this topic HPV Vaccines Aged Out No longer eligi ble based on patient's age to complete this topic Hepatitis A Vaccines Aged Out No long er eligible based on patient's age to complete this topic IPV Vaccines Aged Out No longer eligi ble based on patient's age to complete this topic Meningococcal B Vaccine Aged Out No l onger eligible based on patient's age to complete this topic Meningococcal Vaccine Aged Out No sophy michael eligible based on patient's age to complete this topic Pneumococcal Vaccine: Pediatrics (0 to 5 Years) and At-Risk Patients (6 to 49) Years Aged Out No longer eligible based on patient's age to complete this topic RSV under 20 months Aged Out No longe r eligible based on patient's age to complete this topic Rotavirus Vaccines Aged Out No longer eligible based on patient's age to complete this topic Procedures Procedure Name Priority Date/Time Associated Diagnosis Comments MAMMOGRAPHY Routine 10/12/2024 3:28 PM EST LAB COLOGUARD COLON CANCER SCREEN Routine 08/19/2024 12:00 PM EDT Colon cancer screening HEPATITIS PANEL, GENERAL Routine 05/21/2024 4:05 PM EDT Transaminitis PAP/HPV Routine 05/18/2022 LIPID PANEL, STANDARD Routine 07/31/2021 10:04 AM EDT from Last 3 Months or Most Recently Relevant to Health Maintenance Results * Hm Mammography (10/12/2024 3:28 PM EST) Anatomical Region Laterality Modality Other Historical Provider HEALTH MAINTENANCE Final Result * Cologuard?? colon cancer screening (08/19/2024 12:00 PM EDT) Cologuard Result Negative Negative 08/25/20 24 5:03 PM EDT [employer] (CLIA #:[id number]) Comment: NEGATIVE TEST RESULT. A negative Cologuard result indicates a low likelihood that a colorectal cancer (CRC) or advanced adenoma (adenomatous polyps with more advanced pre-malignant features) is present. The chance that a person with a negative Cologuard test has a colorectal cancer is less than 1 in 1500 (negative predictive value >99.9%) or has an advanced adenoma is less than 5.3% (negative predictive value 94.7%). These data are based on a prospective cross-sectional study of 10,000 individuals at average risk for colorectal cancer who were screened with both Cologuard and colonoscopy. (Helen James al, N Engl J Med 2014;370(14):3453-0199) The normal value (reference range) for this assay is negative. COLOGUARD RE-SCREENING RECOMMENDATION: Periodic colorectal cancer screening is an important part of preventive healthcare for asymptomatic individuals at average risk for colorectal cancer. Following a negative Cologuard result, the [place] Cancer Society and U.S. Multi-Society Task Force screening guidelines recommend a Cologuard re-screening interval of 3 years. References: [place] [employer] Guideline for Colorectal Cancer Screening: https://www.cancer.org/cancer/cquuk-rswpch-hzyhcq/ajejozfiu-fcuelvech-wpowlik/ac s-rec ommendations.html.; Kristofer DK, Alyssa WOODARD, Ching HarrisonK, Colorectal Cancer Screening: Recommendations for Physicians and Patients from the U.S. Multi-Society Task Force on Colorectal Cancer Screening , Am J Gastroenterology 2017; 112:1375-4467. TEST DESCRIPTION: Composite algorithmic analysis of stool DNA-biomarkers with hemoglobin immunoassay. Quantitative values of individual biomarkers are not reportable and are not associated with individual biomarker result reference ranges. Cologuard is intended for colorectal cancer screening of adults of either sex, 45 years or older, who are at average-risk for colorectal cancer (CRC). Cologuard has been approved for use by the U.S. FDA. The performance of Cologuard was established in a cross sectional study of average-risk adults aged 50-84. Cologuard performance in patients ages 45 to 49 years was estimated by sub-group analysis of near-age groups. Colonoscopies performed for a positive result may find as the most clinically significant lesion: colorectal cancer [4.0%], advanced adenoma (including sessile serrated polyps greater than or equal to 1cm diameter) [20%] or non- advanced adenoma [31%]; or no colorectal neoplasia [45%]. These estimates are derived from a prospective cross-sectional screening study of 10,000 individuals at average risk for colorectal cancer who were screened with both Cologuard and colonoscopy. (Helen Max, N Engl J Med 2014;370(14):9953-8720.) Cologuard may produce a false negative or false positive result (no colorectal cancer or precancerous polyp present at colonoscopy follow up). A negative Cologuard test result does not guarantee the absence of CRC or advanced adenoma (pre-cancer). The current Cologuard screening interval is every 3 years. ([place] Cancer Society and U.S. Multi-Society Task Force). Cologuard performance data in a 10,000 patient pivotal study using colonoscopy as the reference method can be accessed at the following location: www.[employer].com/results. Additional description of the Cologuard test process, warnings and precautions can be found at www.cologuard.com. Stool specimen (specimen) 08/19/2024 12:00 PM EDT 08/20/2024 12:35 PM EDT Kiarra Kate MD LAB MOLECULAR DIAGNOSTICS ORD ERABLES Final Result Performing Organization Address [facility] Co de Phone Number [employer] (CLIA #:[id number]) [place] [address], * Hepatitis A,B,C Profile (05/21/2024 4:05 PM EDT) Hepatitis A IgM Nonreactive Nonreactive [facility] Comment:IgM antibodies to NAVARRETE V not detected; does not exclude earlyacute or recovered HAV infection. ~Hepatitis B Surface Antibody NONREACTIVE Nonreactive [facility] Comment:Nonreactive: < 8.00 mIU/mL Hepatitis B Core Antibody Nonreactive Nonreactive [facility] Hepatitis C Antibody Nonreactive Nonreactive [facility] Comment:Antibodies to HCV no t detected; does not exclude early acuteHCV infection. Hepatitis B Surface Ag Negative Negative [facility] Blood Venous blood specimen / Unknown 05/21/2024 4:05 PM EDT 05/21/2024 5:32 PM EDT Kiarra Kate MD LAB BLOOD ORDERABLES Final Re sult Performing Organization Address [facility]/ZIP Co de Phone Number [facility] [address] [place] [phone] * Hm Pap Smear (05/18/2022) Pap Negative for intraephithelial lesion or malignancy Negative for intraephithelial lesion or malignancy, Other HPV Undetected Historical Provider HEALTH MAINTENANCE Final Result * (ABNORMAL) LIPID PANEL, STANDARD (07/31/2021 10:04 AM EDT) Chol/HDLC Ratio 3.4 <5.0 (calc) [facility] Cholesterol, Total 206(H) <200 mg/dL [facility] HDL Cholesterol 60 > OR = 50 mg/dL [facility] LDL Cholesterol 122(H) mg/dL (calc) [facility] Comment: Reference range: <100 Desirable range <100 mg/dL for primary prevention; <70 mg/dL for patients with CHD or diabetic patients with > or = 2 CHD risk factors. LDL-C is now calculated using the Garett-Sameera calculation, which is a validated novel method providing better accuracy than the Friedewald equation in the estimation of LDL-C. Garett SS et al. CHINO. 2013;310(19): 2073-0000 (http://education.[employer].com/faq/HDC279) Non-HDL Cholesterol 146(H) <130 mg/dL (calc) [facility] Comment: For patients with diabetes plus 1 major ASCVD risk factor, treating to a non-HDL-C goal of <100 mg/dL (LDL-C of <70 mg/dL) is considered a therapeutic option. Triglycerides 125 <150 mg/dL [facility] 07/31/2021 10:0 4 AM EDT Kiarra Kate MD LAB BLOOD ORDERABLES Final Re sult [facility] [address] from Last 3 Months or Most Recently Relevant to Health Maintenance [place] [address] [place] [address] C3 Care Teams Adult Caregiver Relationship Specialty Start Date End Date Kiarra Kate MD [address] [place] [phone] PCP - General Family Medicine 11/11/18
--- OUTSIDE RECORDS SUMMARY | 2025-07-06 12:53 | XMS_ITS | Encounter Summary ---
Author Organization [employer] Address [address] [place] [address] Care Team Providers Care Sports Nutritionist Name Role Phone Kiarra Kate MD Primary Care Provider [phone] Reason for Visit * Reason Onset Date Comments chart prep 07/05/2025 Encounter Details Date Type Department Care Team ([facility] Contact Info) Description 07/05/2025 Telephone [facility] [address] [place], [place] [phone] Kiarra Kate MD [address] [place] [address] chart prep Social History Tobacco Use Types Packs/Day Years Used Date Smoking Tobacco: Never Smokeless Tobacco: Never Alcohol Use Standard Drinks/Week Comments Not Currently 0 (1 standard drink = 0.6 oz pur e alcohol) Housing Stability Answer Date Recorded What is your housing situation today? I have junaid angel luis 08/04/[address] you li [...] AM EDT documented as of this encounter Miscellaneous Notes * Telephone Encounter - Cinthia Kemp RN - 07/05/2025 11:57 AM EDT Chart Prep Labs: done Images: done Referrals: complete Vaccines due: Hep B Screenings: STI screening and LMP Overdue care gaps: PHQ-9 and Disability screen documented in this encounter Plan of Treatment Upcoming Encounters Date Type Department Care Team (Late st Contact Info) Description 08/17/2025 10:30 AM EDT Office Visit [facility] [address] [place] [address] Irving Garcia MD [address] [place] [address] 09/10/2025 10:00 AM EDT Office Visit [facility] [address] [place] [address] Kiarra Kate MD [address] [place] [address] documented as of this encounter Visit Diagnoses Not on filedocumented in this encounter Care Teams Sports Nutritionist Relationship Specialty Start Date End Date Kiarra Kate MD [address] [place] [address] PCP - General Family Medicine 11/11/18 documented as of this encounter
--- OUTSIDE RECORDS SUMMARY | 2025-07-06 12:53 | XMS_ITS | Encounter Summary ---
Author Organization [employer] Address [address] [place] [phone] Care Team Providers Care Census Enumerator Name Role Phone Kiarra Kate MD Primary Care Provider [phone] Encounter Details Date Type Department Care Team ([facility] Contact Info) Description 08/12/2023 Abstract [facility] [address] [place], [place] [phone] Kiarra Kate MD [address] [place] [address] Social History Tobacco Use Types Packs/Day Years Used Date Smoking Tobacco: Never Assessed Comments Unknown Sex and Gender Information Value Date Recorded Sex Assigned at Female 09/10/2022 10:20 AM EDT Legal Sex Female 10:20 AM EDT Gender Identity Female 09/10/2022 10:20 AM EDT Sexual Orientation Straight 09/10/2022 10 :20 AM EDT documented as of this encounter Plan of Treatment Upcoming Encounters Date Type Department Care Team ([facility] Contact Info) Description 08/17/2025 10:30 AM EDT Office Visit [facility] [address] [place] [address] Irving Garcia MD [address] [place] [address] 09/10/2025 10:00 AM EDT Office Visit [facility] [address] [place] [address] Kiarra Kate MD [address] [place] [address] documented as of this encounter Procedures Procedure Name Priority Date/Time Associated Diagnosis Comments PAP/HPV Routine 05/18/2022 documented in this encounter Results * Pap Smear (05/18/2022) Pap Negative for intraephithelial lesion or malignancy Negative for intraephithelial lesion or malignancy, Other HPV Undetected us Historical Provider HEALTH MAINTENANCE Final Result documented in this encounter Visit Diagnoses Not on filedocumented in this encounter Care Teams Census Enumerator Relationship Specialty Start Date End Date Kiarra Kate MD [address] [facility] [place] [address] PCP - General Family Medicine 11/11/18 documented as of this encounter
--- OUTSIDE RECORDS SUMMARY | 2025-07-06 12:53 | XMS_ITS | Encounter Summary ---
Author Organization [employer] Address [address] [facility] 7t [place] [address] Care Team Providers Care Parachute Repairer Name Role Phone Kiarra Kate MD Primary Care Provider [phone] Encounter Details Date Type Department Care Team (Latest Contact Info) Description 07/06/2025 Travel Social History Tobacco Use Types Packs/Day Years Used Date Smoking Tobacco: Never Passive Smoke Exposure: Never Smokeless Tobacco: Never Alcohol Use Standard Drinks/Week Comments Not Currently 0 (1 standard drink = 0.6 oz pur e alcohol) Housing Stability Answer Date Recorded What is your housing situation today? I have junaid sing 08/04/[address] you li [...] Description 08/17/2025 10:30 AM EDT Office Visit [facility] [address] [place] [address] Irving Garcia MD [address] [place] [address] 09/10/2025 10:00 AM EDT Office Visit [facility] [address] [place] [address] Kiarra Kate MD [address] [place] [address] documented as of this encounter Visit Diagnoses Not on filedocumented in this encounter Care Teams Parachute Repairer Relationship Specialty Start Date End Date Kiarra Kate MD [address] [place] [address] PCP - General Family Medicine 11/11/18 documented as of this encounter
--- OUTSIDE RECORDS SUMMARY | 2025-07-06 12:53 | XMS_ITS | Encounter Summary ---
Author Organization [employer] Address [address] [place] [address] [place] [address] Care Team Providers Care Newspaper Vendor Name Role Phone Kiarra Kate MD Primary Care Provider [phone] Encounter Details Date Type Department Care Team ([facility] Contact Info) Description 04/03/2023 Orders Only [facility] [address] [place] [address] Kiarra Kate MD [address] [place] [address] Attention deficit disorder, unspecified hyperactivity presence Social History Tobacco Use Types Packs/Day Years [...] Upcoming Encounters Date Type Department Care Team ([facility] Contact Info) Description 08/17/2025 10:30 AM EDT Office Visit [facility] [address] [place] [address] Irving Garcia MD [address] [place] [address] 09/10/2025 10:00 AM EDT Office Visit [facility] [address] [place] [address] Kiarra Kate MD [address] [place] [address] documented as of this encounter Procedures Procedure Name Priority Date/Time Associated Diagnosis Comments BACTERIAL VAGINOSIS PANEL Routine 06/04/2023 9:15 AM EDT Attention deficit disorder, unspecified hyperactivity presence documented in this encounter Results * (ABNORMAL) Bacterial Vaginosis (06/04/2023 9:15 AM EDT) Trichomonas DNA Probe Negative Negative [facility] Gardnerella DNA Probe Negative Negative [facility] Opal DNA Probe Positive(A) Negative [facility] 06/04/2023 9:15 AM EDT 06/04/2023 2:14 PM EDT Kiarra Kate MD LAB MICROBIOLOGY - GENERAL OR DERABLES Final Result [facility] [address] [place] [phone] documented in this encounter Visit Diagnoses Diagnosis Attention deficit disorder, unspecified hyperactivity presence documented in this encounter Care Teams Newspaper Vendor Relationship Specialty Start Date End Date Kiarra Kate MD [address] [place] [address] PCP - General Family Medicine 11/11/18 documented as of this encounter
[2025-07-06 14:05] LABS: MANUAL DIFF FLAG NO
[2025-07-06 14:19] LABS: Hematocrit 38.7 % (37.0-47.0); Hemoglobin 13.0 g/dl (12.0-16.0); Imm Gran Abs Auto 0.01 X10*3/uL (0.00-0.03); Imm Gran Pct Auto 0.2 % (0.0-0.4); Lymphocytes Absolute Auto 2.2 X10*3/uL (1.2-4.9); Mean Corpuscular HGB Conc 33.6 g/dl (31.0-35.0); Mean Corpuscular Hemoglobin 28.5 pg (27.0-33.0); Mean Corpuscular Volume 84.9 fL (80.0-98.0); NRBC Abs Auto 0.000 X10*3/uL (0.0-0.012); NRBC Pct Auto 0.0 /100WBC (0.0-0.2); Platelet Count 287 X10*3/uL (160-400); Red Blood Count 4.56 X10*6/uL (4.20-5.50); White Blood Count 5.6 X10*3/uL (4.8-10.8)
[2025-07-10 19:28] LABS: Testosterone, Free 0.8 pg/mL (0.1-6.4)
[2025-07-22 23:43] LABS: Estradiol Ultra Sensitive 22 pg/mL
== END 2025-07-06 12:02 | disposition home or self-care (01) ==
LOC: HO.CHCLDS 12:01
PROVIDERS: Visit Provider Pediatrics
DX: N95.1 Menopausal and female climacteric states (principal)
CPT/HCPCS: 36415; 82306; 82670; 84402; 84403; 84443; 85025